=== PATIENT | male | born 1990 | race Caucasian/White ===

== ENCOUNTER 2022-03-18 12:16 | Emergency (ER) | payer MEDICAID ==
[~2022-03-18] VITALS: Ht 170.2 cm; Wt 74.8 kg
--- NOTE | 2022-03-18 12:33 | NUR ---
Patient to ER bed 08 to gown for evaluation. Side rails up.
--- NOTE | 2022-03-18 12:35 | NUR ---
Pt brought by self, A&Ox4, pt presents to ER with R earache x 3 days, pt is afebrile, VSS, respirations even and unlabored, will cont to monitor.
[2022-03-18 12:38] VITALS: BP_SYST 140
--- NOTE | 2022-03-18 12:40 | NUR ---
Dr Calhoun evaluating patient at bedside
[2022-03-18] MEDS ORDERED: FLUT16SP16 NS (13:37)
[2022-03-18 13:43] VITALS: BP_SYST 140
--- NOTE | 2022-03-18 13:45 | NUR ---
Patient given written and verbal discharge instructions and verbalizes understanding. ER MD DR WILSON discussed with patient the results and treatment provided. Patient in stable condition. ID arm band removed. Rx of FLUTICASONE PROPIONATE given. Patient educated on pain management and to follow up with PMD. Pain Scale 6/10. Opportunity for questions provided and answered. Medication side effect fact sheet provided.
== END 2022-03-18 13:45 | disposition home or self-care (01) ==
LOC: SED 12:16
DX: H68.011 Acute Eustachian salpingitis, right ear (principal); Z79.899 Other long term (current) drug therapy
CPT/HCPCS: 99283

== ENCOUNTER 2022-11-09 15:44 | Emergency (ER) | payer MEDICAID ==
[~2022-11-09] VITALS: Ht 180.3 cm; Wt 113.4 kg
[~2022-11-09 15:44] MED LIST: FLUT16SP16 NS
[2022-11-09 15:47] VITALS: BP_SYST 131
== END 2022-11-09 19:30 | disposition left against medical advice (07) ==
LOC: SED 15:44
DX: M79.661 Pain in right lower leg (principal); Z53.21 Procedure and treatment not carried out due to patient leaving prior to being seen by health care provider
CPT/HCPCS: 99281